=== PATIENT | female | born 2000 | race Caucasian/White ===

== ENCOUNTER 2024-12-28 14:30 | Emergency (ER) | payer BC ==
[2024-12-28] MEDS ORDERED: Sodium Chloride 0.9% 2.5 ML Syringe FLUSH PRN (16:22)
[2024-12-28 16:33] LABS: APPEARANCE,URINE CLEAR; BILIRUBIN,URINE NEGATIVE (NEGATIVE); COLOR,URINE YELLOW; GLUCOSE,URINE NEGATIVE (NEGATIVE); KETONES,URINE >=80 mg/dL (NEGATIVE); LEUKOCYTE ESTERASE,URINE NEGATIVE (NEGATIVE); NITRITE,URINE NEGATIVE (NEGATIVE); OCCULT BLOOD,URINE NEGATIVE (NEGATIVE); PROTEIN,URINE NEGATIVE (NEGATIVE); UROBILINOGEN,URINE 0.2 EU/dL (<2.0)
[2024-12-28] MEDS: Ondansetron 4 MG/2 ML SDV IVPUSH STA (16:53)
[2024-12-28] MEDS: Sodium Chloride 0.9% 10 ML Syringe FLUSH PRN (16:53)
[2024-12-28] MEDS: Sodium Chloride 0.9% 1,000 ML IV STA ×2 (16:53→18:04)
[2024-12-28 17:19] LABS: BASOPHILS ABSOLUTE AUTO 0.02 K/uL (0.00-0.20); BASOPHILS PERCENT AUTO 0.3 % (0.0-1.0); HEMATOCRIT 37.6 % (37.0-47.0); HEMOGLOBIN 13.3 g/dL (12.0-16.0); IMMATURE GRAN ABSOLUTE AUTO 0.02 K/uL (0.00-0.05); IMMATURE GRAN PERCENT AUTO 0.3 % (0.0-0.4); LYMPHOCYTES ABSOLUTE AUTO 1.09 K/uL (1.00-4.80); LYMPHOCYTES PERCENT AUTO 15.6 % (24.0-44.0); MEAN CORPUSCULAR HEMOGLOBIN 29.6 pg (28.0-32.0); MEAN CORPUSCULAR HGB CONC 35.4 g/dL (32.0-36.0); MEAN CORPUSCULAR VOLUME 83.6 fL (83.0-99.0); MEAN PLATELET VOLUME 10.8 fL (9.4-12.3); MONOCYTES ABSOLUTE AUTO 0.69 K/uL (0.00-0.80); MONOCYTES PERCENT AUTO 9.9 % (0.0-8.0); NEUTROPHILS ABSOLUTE AUTO 5.17 K/uL (1.80-7.70); NEUTROPHILS PERCENT AUTO 73.9 % (41.0-71.0); PLATELET COUNT,PLT 196 K/uL (150-400); WHITE BLOOD CELL COUNT,WBC 6.99 K/uL (3.9-11.3)
[2024-12-28] MEDS: Oseltamivir 75 MG Cap PO STA (17:19)
[2024-12-28 17:31] LABS: A/G RATIO 0.7 (0.9-1.6); ALBUMIN 3.1 g/dL (3.4-5.0); BILIRUBIN TOTAL 0.2 mg/dL (0.2-1.0); CALCIUM 8.9 mg/dL (8.5-10.1); CARBON DIOXIDE,CO2 20.5 mmol/L (21.0-32.0); CREATININE 0.6 mg/dL (0.6-1.0); EST CRCL DRUG DOSING (CG) 148.49 mL/min; MAGNESIUM 1.7 mg/dL (1.8-2.4); POTASSIUM,K 3.6 mmol/L (3.5-5.1); PROTEIN TOTAL,TP 7.3 g/dL (6.4-8.2)
[2024-12-28] MEDS: Magnesium Sulfate/Water Premix 2 GM in Premix Bag 1 BAG IV STA (18:03)
== END 2024-12-28 19:26 | disposition home or self-care (01) ==
LOC: MW.ED 14:30
DX: O21.9 Vomiting of pregnancy, unspecified (principal); O99.282 Endocrine, nutritional and metabolic diseases complicating pregnancy, second trimester; E83.42 Hypomagnesemia; O99.891 Other specified diseases and conditions complicating pregnancy; R10.9 Unspecified abdominal pain; Z75.8 Other problems related to medical facilities and other health care; Z88.5 Allergy status to narcotic agent; Z88.8 Allergy status to other drugs, medicaments and biological substances; Z3A.16 16 weeks gestation of pregnancy
CPT/HCPCS: 36415; 76801; 80053; 81003; 83690; 83735; 85025; 87428; 96361; 96365; 96375; 99284; A9270; J2405; J3475; J7030

== ENCOUNTER 2025-06-01 19:11 | Inpatient (IN) | payer BC ==
[2025-06-01] MEDS ORDERED: Sodium Chloride 0.9% 10 ML Syringe FLUSH PRN (20:32)
[2025-06-01] MEDS ORDERED: Carboprost Tromethamine 250 MCG/1 mL Vial IM PRN (20:32)
[2025-06-01] MEDS ORDERED: Water For Irrigation,Sterile 1,000 ML Container IRR PRN (20:32)
[2025-06-01] MEDS ORDERED: Sodium Chloride 0.9% 2.5 ML Syringe FLUSH PRN (20:32)
[2025-06-01] MEDS ORDERED: ePHEDrine 50 MG/ML SDV IVPUSH PRN (20:35)
[2025-06-01] MEDS ORDERED: Oxytocin/0.9 % Sodium Chloride 30 UNIT/500 ML BAG IV SCH (20:45)
[2025-06-01] MEDS ORDERED: dexmedeTOMIDine HCl 200 MCG/2 ML SDV EPIDUR SCH (20:45)
[2025-06-01 21:22] LABS: MEAN PLATELET VOLUME 11.4 fL (9.4-12.3); NRBC ABSOLUTE 0.00 K/uL (0.00-0.02); NRBC PERCENT 0.0 /100WBC (0.0-0.2); PLATELET COUNT,PLT 235 K/uL (150-400); RED BLOOD CELL COUNT 4.39 M/uL (4.10-5.30); WHITE BLOOD CELL COUNT,WBC 12.01 K/uL (3.9-11.3)
[2025-06-01] MEDS ORDERED: Terbutaline 1 MG/ML SDV SUBCUT PRN (22:23)
[2025-06-01] MEDS: Misoprostol 25 MCG (1/4 of 100 MCG) Tab PO PRN (22:43)
[2025-06-01] MEDS: Misoprostol 25 MCG (1/4 of 100 MCG) Tab VAG PRN (22:43)
[2025-06-02] MEDS: Lactated Ringers 1,000 ML IV SCH (15:12)
[2025-06-02] MEDS: Oxytocin/0.9 % Sodium Chloride 30 UNIT/500 ML BAG IV SCH (15:13)
[2025-06-03] MEDS: Butorphanol 1 MG/ML SDV IVPUSH PRN (02:21)
[2025-06-03] MEDS: Ropivacaine HCl/PF 400 MG in Premix Bag 1 BAG EPIDUR SCH (06:47)
[2025-06-03] MEDS: Ondansetron 4 MG/2 ML SDV IVPUSH PRN (21:48)
[2025-06-04] MEDS ORDERED: Ondansetron 4 MG/2 ML SDV ONE (03:38)
[2025-06-04] MEDS ORDERED: Morphine PF 10 MG/10 ML SDV ONE (03:38)
[2025-06-04] MEDS ORDERED: Phenylephrine 1% 10 MG/ML SDV ONE (03:38)
[2025-06-04] MEDS ORDERED: dexmedeTOMIDine HCl 200 MCG/2 ML SDV ONE (03:38)
[2025-06-04] MEDS ORDERED: ceFAZolin 3 GM Vial ONE (03:38)
[2025-06-04] MEDS ORDERED: Oxytocin 10 Units/1 ML SDV ONE (03:38)
[2025-06-04] MEDS ORDERED: fentaNYL 100 MCG/2 ML SDV ONE (03:38)
[2025-06-04] MEDS ORDERED: Dexamethasone 4 MG/ML 5 ML MDV ONE (03:38)
[2025-06-04] MEDS ORDERED: ePHEDrine 50 MG/ML SDV ONE (03:41)
[2025-06-04] MEDS ORDERED: Ropivacaine 0.5% 5 MG/ML 30 ML SDV ONE (04:09)
[2025-06-04] MEDS ORDERED: fentaNYL 50 MCG/ML SDV IVPUSH PRN (04:27)
[2025-06-04] MEDS ORDERED: Acetaminophen/oxyCODONE 325-5 MG Tab PO PRN (04:27)
[2025-06-04] MEDS ORDERED: Naloxone 0.4 MG/ML SDV IVPUSH PRN (04:27)
[2025-06-04] MEDS ORDERED: diphenhydrAMINE 50 MG/ML SDV IVPUSH PRN (04:27)
[2025-06-04] MEDS ORDERED: Nalbuphine 10 MG/1 ML Vial IVPUSH PRN (04:27)
[2025-06-04] MEDS ORDERED: Albuterol 0.083% 2.5 MG/3 ML Neb Soln NEB PRN (04:27)
[2025-06-04] MEDS ORDERED: fentaNYL 100 MCG/2 ML SDV IVPUSH PRN (04:27)
[2025-06-04] MEDS ORDERED: Ondansetron 4 MG/2 ML SDV IVPUSH PRN ×3 (04:27→05:29)
[2025-06-04] MEDS ORDERED: Sodium Chloride 0.9% 2.5 ML Syringe FLUSH PRN (05:29)
[2025-06-04] MEDS ORDERED: Sodium Chloride 0.9% 10 ML Syringe FLUSH PRN (05:29)
[2025-06-04] MEDS ORDERED: Oxytocin/0.9 % Sodium Chloride 30 UNIT/500 ML BAG IV SCH (05:30)
[2025-06-04 05:52] LABS: PH,UMBILICAL ARTERIAL 7.16 (7.18-7.38); PH,UMBILICAL VENOUS 7.18 (7.25-7.45)
[2025-06-04] MEDS: Ketorolac 30 MG/ML SDV IVPUSH SCH (06:30)
[2025-06-04] MEDS: Lanolin 100% Cream 7 GM Tube TOP PRN (12:19)
[2025-06-05 06:12] LABS: BASOPHILS ABSOLUTE AUTO 0.02 K/uL (0.00-0.20); BASOPHILS PERCENT AUTO 0.1 % (0.0-1.0); EOSINOPHILS ABSOLUTE AUTO 0.15 K/uL (0.00-0.45); EOSINOPHILS PERCENT AUTO 0.9 % (0.0-6.0); IMMATURE GRAN ABSOLUTE AUTO 0.08 K/uL (0.00-0.05); IMMATURE GRAN PERCENT AUTO 0.5 % (0.0-0.4); LYMPHOCYTES ABSOLUTE AUTO 2.93 K/uL (1.00-4.80); LYMPHOCYTES PERCENT AUTO 18.5 % (24.0-44.0); MEAN PLATELET VOLUME 11.6 fL (9.4-12.3); MONOCYTES ABSOLUTE AUTO 0.95 K/uL (0.00-0.80); MONOCYTES PERCENT AUTO 6.0 % (0.0-8.0); NEUTROPHILS ABSOLUTE AUTO 11.70 K/uL (1.80-7.70); NEUTROPHILS PERCENT AUTO 74.0 % (41.0-71.0); NRBC ABSOLUTE 0.00 K/uL (0.00-0.02); NRBC PERCENT 0.0 /100WBC (0.0-0.2); PLATELET COUNT,PLT 173 K/uL (150-400); RED BLOOD CELL COUNT 3.63 M/uL (4.10-5.30); WHITE BLOOD CELL COUNT,WBC 15.83 K/uL (3.9-11.3)
[2025-06-05] MEDS: Ketorolac 30 MG/ML SDV IVPUSH SCH (12:28)
== END 2025-06-06 11:51 | disposition home or self-care (01) | DRG 540 ==
LOC: MW.OBCHECK 19:11 → MW.OB 19:11 → MW.OBCHECK 20:31 → MW.OB 20:32 → OBSVTOIN 06-04 04:12 → MW.OB 06-04 15:20
PROVIDERS: ADMIT Obstetrics & Gynecology; ATTEND Obstetrics & Gynecology
PROC: 3E0P7VZ Introduction of Hormone into Female Reproductive, Via Natural or Artificial Opening (ICD-10-PCS; 2025-06-04)
PROC: 4A1HXCZ Monitoring of Products of Conception, Cardiac Rate, External Approach (ICD-10-PCS; 2025-06-04)
PROC: 10H07YZ Insertion of Other Device into Products of Conception, Via Natural or Artificial Opening (ICD-10-PCS; 2025-06-04)
PROC: 10D00Z1 Extraction of Products of Conception, Low, Open Approach (ICD-10-PCS; principal; 2025-06-04 04:05)
DX: O40.3XX0 Polyhydramnios, third trimester, not applicable or unspecified (principal); Z3A.39 39 weeks gestation of pregnancy; Z37.0 Single live birth; O99.214 Obesity complicating childbirth; E66.01 Morbid (severe) obesity due to excess calories; O76 Abnormality in fetal heart rate and rhythm complicating labor and delivery; O62.2 Other uterine inertia; O90.81 Anemia of the puerperium; O77.0 Labor and delivery complicated by meconium in amniotic fluid
CPT/HCPCS: 01967; 01968; 36415; 51702; 59025; 59514; 64999; 76815; 76815-26; 82803; 85025; 85027; 86592; 86850; 86900; 86901; 99140; A9270-GY; J0456; J0595; J0690; J1100; J1790; J1885; J2274; J2371; J2405; J2590; J2795; J3010; J3490; J7120

== ENCOUNTER 2025-06-10 08:14 | Emergency (ER) | payer BC ==
[2025-06-10] MEDS ORDERED: Sodium Chloride 0.9% 2.5 ML Syringe FLUSH PRN (08:50)
[2025-06-10] MEDS ORDERED: Sodium Chloride 0.9% 10 ML Syringe FLUSH PRN (08:50)
[2025-06-10 08:57] LABS: BASOPHILS ABSOLUTE AUTO 0.05 K/uL (0.00-0.20); BASOPHILS PERCENT AUTO 0.3 % (0.0-1.0); EOSINOPHILS ABSOLUTE AUTO 0.26 K/uL (0.00-0.45); EOSINOPHILS PERCENT AUTO 1.4 % (0.0-6.0); IMMATURE GRAN ABSOLUTE AUTO 0.16 K/uL (0.00-0.05); IMMATURE GRAN PERCENT AUTO 0.9 % (0.0-0.4); LYMPHOCYTES ABSOLUTE AUTO 2.61 K/uL (1.00-4.80); LYMPHOCYTES PERCENT AUTO 14.1 % (24.0-44.0); MEAN PLATELET VOLUME 10.4 fL (9.4-12.3); MONOCYTES ABSOLUTE AUTO 1.15 K/uL (0.00-0.80); MONOCYTES PERCENT AUTO 6.2 % (0.0-8.0); NEUTROPHILS ABSOLUTE AUTO 14.24 K/uL (1.80-7.70); NEUTROPHILS PERCENT AUTO 77.1 % (41.0-71.0); NRBC ABSOLUTE 0.00 K/uL (0.00-0.02); NRBC PERCENT 0.0 /100WBC (0.0-0.2); PLATELET COUNT,PLT 280 K/uL (150-400); RED BLOOD CELL COUNT 4.21 M/uL (4.10-5.30); WHITE BLOOD CELL COUNT,WBC 18.47 K/uL (3.9-11.3)
[2025-06-10 08:58] LABS: APPEARANCE,URINE SLT CLOUDY; GLUCOSE,URINE NEGATIVE (NEGATIVE); OCCULT BLOOD,URINE LARGE (NEGATIVE)
[2025-06-10] MEDS: Ketorolac 30 MG/ML SDV IVPUSH ONE (08:59)
[2025-06-10] MEDS: Ondansetron 4 MG/2 ML SDV IVPUSH ONE (08:59)
[2025-06-10 09:07] LABS: EPITHELIAL CELLS,URINE FEW (NONE-FEW)
[2025-06-10 09:13] LABS: A/G RATIO 0.5 (0.9-1.6); ALANINE AMINOTRANSFERASE,ALT 19.0 IU/L (14-63); ASPARTATE AMNIOTRANSFERASE,AST 15.0 IU/L (15-37); BILIRUBIN TOTAL 0.4 mg/dL (0.2-1.0); BLOOD UREA NITROGEN,BUN 8.0 mg/dL (7.0-18.0); CARBON DIOXIDE,CO2 23.3 mmol/L (21.0-32.0); CHLORIDE,CL 100.0 mmol/L (98-107); CREATININE 0.8 mg/dL (0.6-1.0); EST CRCL DRUG DOSING (CG) 106.56 mL/min; GLUCOSE RANDOM 114.0 mg/dL (74-106); POTASSIUM,K 4.0 mmol/L (3.5-5.1); PROTEIN TOTAL,TP 7.0 g/dL (6.4-8.2); SODIUM,NA 135.0 mmol/L (136-145)
[2025-06-10 09:14] LABS: ESTIMATED GFR 104.0 mL/min (>60)
[2025-06-10] MEDS: Iopamidol 755 MG/ML 500 ML Multipack Bottle IVPUSH STA (09:42)
== END 2025-06-10 10:27 | disposition home or self-care (01) ==
LOC: MW.ED 08:14
DX: K59.00 Constipation, unspecified (principal); Z88.8 Allergy status to other drugs, medicaments and biological substances; Z79.899 Other long term (current) drug therapy
CPT/HCPCS: 36415; 74177; 80053; 81001; 83690; 85025; 96361; 96374; 96375; 99284; J1885; J2405; J7030; Q9967; 99283